=== PATIENT | female | born 1950 | race Caucasian/White ===

== ENCOUNTER 2018-09-21 10:44 | Outpatient (CLI) | payer MEDICARE, OTHER | END 2018-09-21 10:45 | disposition short-term general hospital (02) | LOC: EMS 10:44 | PROVIDERS: ATTEND Surgery | DX: R19.5 Other fecal abnormalities (principal); R42 Dizziness and giddiness; R53.1 Weakness; R11.0 Nausea | CPT/HCPCS: A0425; A0427 ==